=== PATIENT | female | born 1950 | race American Indian/Alaskan Native ===

== ENCOUNTER 2020-02-07 07:41 | Day surgery (SDC) | payer OTHER ==
[~2020-02-07 07:41] MED LIST: CELECOXIB 200 MG CAP PO NR; GABAPENTIN 300 MG CAP PO NR; LACTATED RINGERS 1,000 ML IV SCH; MAGNESIUM OXIDE 400 MG TAB PO SCH; MIDAZOLAM 2 MG/2 ML INJ IV NR; ceFAZolin/Water 2 GM/20 ML 2 GM/20 ML SYRINGE IV NR; fentaNYL 100 MCG/2 ML INJ IV PRN
[2020-02-07] MEDS ORDERED: LIDOCAINE (1%) 10 MG/1 ML VIAL 20 ML MDV ONE ×2 (08:33→09:53)
--- NOTE | 2020-02-07 09:49 | Anesthesia Consultation ---
Anesthesia Consult and Med Hx Date of service: 02/07/20 - Airway Anesthetic Teeth Evaluation: Good (permanent upper implants), Dentures (lower) ROM Head & Neck: Adequate Mental/Hyoid Distance: Adequate Mallampati Class: Class II Intubation Access Assessment: Probably Good - Pulmonary Exam CTA: Yes - Cardiac Exam Cardiac Exam: RRR - Pre-Operative Health Status ASA Pre-Surgery Classification: ASA3 Proposed Anesthetic Plan: General Nerve Block: PEC - Pulmonary Hx Smoking: No Hx Respiratory Symptoms: No Hx Sleep Apnea: Yes (mild, per patient. No CPAP prescribed.) - Cardiovascular System Hx Hypertension: Yes Hx Heart Attack/AMI: No Hx Percutaneous Transluminal Coronary Angioplasty (PTCA): No Hx Pacemaker: Yes (not pacer dependent) Hx Internal Defibrillator: Yes (recent interrogation OK) Hx Valvular Heart Disease: No - Central Nervous System CVA: No Hx Back Pain: Yes (NECK) Hx Psychiatric Problems: No - Gastrointestinal Hx Gastroesophageal Reflux Disease: No - Endocrine Hx Renal Disease: No Hx Liver Disease: No Hx Non-Insulin Dependent Diabetes: Yes Hx Thyroid Disease: No - Hematic Hx Anemia: Yes (LAST H/H 10.4/32.1, Plt 170s) - Other Systems Hx Cancer: Yes (breast ca) Hx Obesity: No - Additional Comments Anesthesia Medical History Comments: No hx anesthetic complications. Prior hx CHF w/ reduced EF and arryhthmia requiring AICD placement. Patient follows with cardiology regularly and had TTE approx 6 months ago which she reports showed EF improved to 50%. She also had recent AICD interrogation and note is in chart stating she is not pacer dependent. >4met exercise tolerance, no signs/symptoms of HF exacerbation.
[2020-02-07] MEDS ORDERED: fentaNYL 100 MCG/2 ML INJ IV PRN (09:51)
--- NOTE | 2020-02-07 09:51 | Anesthesia Day of Surgery ---
Anesthesia Day of Surgery - Day of Surgery Patient Examined: Yes Patient H&P Reviewed: Yes Patient is NPO: Yes Beta Blockers: Yes (took carvedilol this morning )
[2020-02-07] MEDS ORDERED: dexAMETHasone 4 MG/ML VIAL ONE (09:53)
[2020-02-07] MEDS ORDERED: BUPIVACAINE-EPINEPHRINE/PF 0.5%-1:200,000 (30 ML) VIAL INFILTRATI ONE (09:54)
[2020-02-07] MEDS ORDERED: ROCURONIUM 50 MG/5 ML INJ IV ONE (11:03)
[2020-02-07] MEDS ORDERED: dexAMETHasone 20 MG/5 ML VIAL ONE (11:03)
[2020-02-07] MEDS ORDERED: propofoL 200 MG/20 ML VIAL IV ONE (11:03)
[2020-02-07] MEDS ORDERED: fentaNYL 100 MCG/2 ML INJ ONE (11:04)
[2020-02-07] MEDS ORDERED: SODIUM CHLORIDE P/F VIAL 10 ML 10 ML ONE (11:29)
[2020-02-07] MEDS ORDERED: METHYLENE BLUE 50 MG/10 ML AMP ONE (11:29)
[2020-02-07] MEDS ORDERED: METHYLENE BLUE 50 MG/10 ML AMP IRRIGATION ONE (13:00)
[2020-02-07] MEDS ORDERED: WATER FOR IRRIG STERILE 1,500 ML BOTTLE IR ONE (13:01)
[2020-02-07] MEDS ORDERED: SODIUM CHLORIDE 0.9% P/F 10 ML VIAL INFILTRATI ONE (13:01)
--- NOTE | 2020-02-07 14:09 | Mammography Report ---
RIGHT BREAST MAMMOGRAPHY-GUIDED NEEDLE WIRE LOCALIZATION HISTORY: Right breast cancer. CONSENT: Technique, risks, and alternatives were discussed with the patient and informed written cons ent obtained. PROCEDURE: The right breast was placed in compression. A mammographic view was acquired, and the appropriate co ordinates for needle targeting determined. The skin overlying the chosen needle entry site were clean sed with betadine. The skin and superficial soft tissues were anesthetized with a small amount of bu ffered 1% lidocaine. Two 7.5 cm Morse needles was advanced along the anterior and posterior aspect of the calcifications and biopsy marker. A mammographic view suggested appropriate trajectory of the needles. An orthogonal view was acquired, and the needles adjusted to the appropriate depth. The wir es were placed, and the needles were removed. Post procedure mammographic images were acquired and annotated appropriately. The images were given t o the patient for transport to surgery. The patient tolerated the procedure well with no complication s. No surgical specimen was submitted for review. IMPRESSION Technically successful mammographically guided wire bracketing/localization in the right superior jesus ast. Signer Name: Ren Norwood MD Signed: 02/07/2020 2:04 PM Workstation Name: [id number]
[2020-02-07] MEDS ORDERED: ONDANSETRON 4 MG/2 ML INJ ONE (14:19)
--- NOTE | 2020-02-07 14:48 | Operative Report ---
Operative Report Operative Report: Operative Report: February 07, 2020 Preoperative diagnosis: Right breast cancer of the upper inner quadrant Postoperative diagnosis: Same Procedure: Right needle localization partial mastectomy of the upper inner quadrant and SLNB Surgeon: Jenn Cueto MD Oven Heater: Dr. Valladares Anesthesia: General Findings: Right wires and clip present within radiograph specimen; x 2 SLNs Complications: None EBL: Less than 25 cc Disposition: PACU in good condition Indications for operative procedure: This is a 69 year old lady with newly diagnosed right breast cancer of the upper inner quadrant, Stage II [id number] ER/MO positive (right breast cancer 1:00 position 14 cm FN, mammographic findings of calcifications with tissue distortion of 3 cm and ultrasound findings of 1 cm hypoechoic focus with tissue distortion of 2 cm). Recommendations are to proceed with breast conservation. Radiology bracketed areas of cancer of IDCA breast cancer mass and tissue distortion with calcifications. She understands the role of adjuvant radiation therapy and Oncotype DX will be obtained by medical oncology. She wished to proceed with the above procedure. Genetic testing with no significant gene mutation. Procedure in detail: The patient was taken to radiology for wire placement for localization known area of cancer with associated tissue distortion. Anesthesia placed right pectoral block. Patient was then taken to the operating room. Gen. anesthesia was administered. The right nipple was injected with radioisotope and 1 cc of methylene blue dye with 1 cc of saline. Right breast and axilla were prepped and draped in the normal sterile operative fashion. The wires were identified. Timeout was performed. Gamma probe was inserted into the axilla. The area of hot spot was identified. A right axillary incision was made with a 15 blade knife with dissection taken down to the subcutaneous tissues. The axillary fascia was opened with the Bovie cautery. 2 SLNs were identified. All remaining counts were less than 10% of the highest count. Lymph node was sent to pathology for permanent processing. Hemostasis was obtained in the right axillary cavity. Axillary cavity was appropriately irrigated and suctioned. Hemostasis was noted. Axillary fascia was approximated and closed using interrupted 3-0 Vicryl and the skin brought together and closed using a running 4-0 Monocryl followed by skin affix. Attention was then taken towards the right breast. Ultrasound was used as well, area of known cancer around 1:00 position 14 cm FN. An upper inner quadrant breast incision was made with a 15 blade knife and dissection taken down to subcutaneous tissues. First began raising of the superior flap with removal of the wires from the skin with dissection take down to the pectoralis muscle, followed by raising of the inferior flap, medial flap and lateral flap with all flaps taken down to the pectoralis muscle. The breast area of concern was appropriately removed posteriorly from the pectoralis muscle with the aid of the Bovie cautery. The wires were not encountered. Specimen was marked and then sent to pathology and radiology; radiograph specimen with wires and clip present. Breast cavity was irrigated and hemostasis was obtained. The posterior deep breast tissues were approximated and closed using interrupted 3-0 Vicryl. The subcutaneous tissues were approximated and closed using interrupted 3-0 Vicryl followed by closing of the skin with a running 4-0 Monocryl and skin affix. The patient tolerated surgery very well and she was awaken from anesthesia without any complication and transported to PACU in good condition.
--- NOTE | 2020-02-07 14:51 | Short Stay Summary ---
Short Stay Documentation Date of service: 02/07/20 - History H&P: obtained from office - Allergies and Medications Current Medications: Allergies No Known Allergies Allergy (Verified 01/31/20 10:42) Home Medications Medication Instructions Recorded Confirmed Last Taken Type Ascorbic Acid [Vitamin C] 500 mg PO QDAY 01/31/20 01/31/20 Unknown History Aspirin EC [Halfprin EC] 81 mg PO QDAY 01/31/20 01/31/20 Unknown History Dulaglutide [Trulicity] 1.5 mg SQ QWEEK 01/31/20 01/31/20 Unknown History Ergocalciferol [Vitamin D2] 1 cap PO QWEEK 01/31/20 01/31/20 Unknown History Losartan [Cozaar] 25 mg PO QDAY 01/31/20 01/31/20 Unknown History Spironolactone [Aldactone] 25 mg PO QDAY 01/31/20 01/31/20 Unknown History Turmeric Root Extract [Turmeric 1,000 mg PO DAILY 01/31/20 01/31/20 Unknown History Curcumin] carvediloL [Coreg] 25 mg PO BID 01/31/20 01/31/20 Unknown History HYDROcodone/APAP 5-325 [[place] 1 each PO Q6HR PRN #20 tablet 02/07/20 Unknown Rx 5/325] Active Medications Celecoxib (Celebrex) 200 mg PO PREOP NR Stop: 02/07/20 23:59 Last Admin: 02/07/20 09:40 Dose: 200 mg Documented by: Fentanyl (Sublimaze) 100 mcg IV ONCE PRN PRN Reason: sedation for nerve block Stop: 02/07/20 23:59 Last Admin: 02/07/20 10:47 Dose: 50 mcg Documented by: Fentanyl (Sublimaze) 50 mcg IV Q5MIN PRN PRN Reason: Pain , Severe (7-10) Gabapentin (Gabapentin) 300 mg PO PREOP NR Stop: 02/07/20 23:59 Last Admin: 02/07/20 09:40 Dose: 300 mg Documented by: Cefazolin Sodium (Ancef/Sterile Water 2 Gm/20 Ml) 2 gm in 20 mls @ 80 mls/hr IV PREOP NR; Protocol Stop: 02/07/20 23:59 Lactated Ringer's (Lactated Ringers) 1,000 mls @ 100 mls/hr IV DIRECT LEO Stop: 02/07/20 23:59 Last Admin: 02/07/20 09:40 Dose: 100 mls/hr Documented by: Magnesium Oxide (Mag-Ox) 400 mg PO PREOP LEO Stop: 02/07/20 23:59 Last Admin: 02/07/20 09:40 Dose: 400 mg Documented by: Midazolam HCl (Versed) 2 mg IV PREOP NR Stop: 02/07/20 23:59 Last Admin: 02/07/20 10:47 Dose: 2 mg Documented by: - Brief post op/procedure progress note Date of procedure: 02/07/20 Pre-op diagnosis: Right breast cancer upper inner quadrant Post-op diagnosis: same Procedure: Right needle localization partial mastectomy with SLNB Anesthesia: GETA Findings: Wires and clip present; x2 SLNs Surgeon: YENNIFER FALCON Sider: GERSON BACON Estimated blood loss: minimal Pathology: list (right partial mastectomy; x2slns) Specimen disposition: to lab Condition: stable - Disposition Condition at discharge: Good Disposition: DC-01 TO HOME OR SELFCARE Short Stay Discharge Plan Activity: other (no heavy lifting) Diet: regular Wound: keep clean and dry (wear breast binder, may shower in 48 hours; no baths, pools or lakes) Follow up with: MICHAEL MONIQUE JR, MD [Primary Care Provider] - 7 Days YENNIFER FALCON MD [Staff Physician] - 7 Days Prescriptions: HYDROcodone/APAP 5-325 [[place]iff 5/325] 1 each PO Q6HR PRN #20 tablet PRN Reason: Pain
--- NOTE | 2020-02-07 15:27 | Mammography Report ---
BREAST SURGICAL SPECIMEN INDICATION: Right breast cancer, planned surgical excision. COMPARISON: Outside imaging 11/27/2019 and 11/02/2019. FINDINGS: Single surgical specimen radiograph was obtained. This documents a biopsy marker as well as calcifications within the specimen. Two Morse wires which were placed for bracketing are identifie d as well. IMPRESSION: Single surgical specimen containing biopsy marker and calcifications. Signer Name: Ren Norwood MD Signed: 02/07/2020 3:22 PM Workstation Name: [id number]
[2020-02-07 16:52] VITALS: BP 139/72
--- NOTE | 2020-02-07 18:45 | Post Anesthesia Evaluation ---
- Post Anesthesia Evaluation Patient Participated: Yes Airway Patent: Yes Stable Respiratory Function: Yes Nausea/Vomiting: No Temp > 96.8F: Yes Pain Manageable: Yes Adequeate Hydration: Yes Anesthesia Complications: No
== END 2020-02-07 07:42 | disposition home or self-care (01) ==
LOC: OR 07:41
PROVIDERS: ATTEND Surgery
DX: C50.211 Malignant neoplasm of upper-inner quadrant of right female breast (principal); Z11.59 Encounter for screening for other viral diseases; I11.0 Hypertensive heart disease with heart failure; I50.9 Heart failure, unspecified; G47.30 Sleep apnea, unspecified; M19.90 Unspecified osteoarthritis, unspecified site; E11.9 Type 2 diabetes mellitus without complications; D64.9 Anemia, unspecified; Z80.3 Family history of malignant neoplasm of breast; Z72.89 Other problems related to lifestyle; Z98.890 Other specified postprocedural states; Z79.899 Other long term (current) drug therapy; Z79.82 Long term (current) use of aspirin; Z98.49 Cataract extraction status, unspecified eye; Z95.0 Presence of cardiac pacemaker; Z90.710 Acquired absence of both cervix and uterus; Z85.830 Personal history of malignant neoplasm of bone
CPT/HCPCS: 19281; 19301; 38525; 38792; 76098; 78800; 82962; 88307; 88333; 88341; 88342; A9541; J0690; J1100; J2250; J2405; J2704; J3010; J7120; Q9968; U0003; 64450

== ENCOUNTER 2020-12-03 13:18 | Outpatient (CLI) | payer MEDICARE ==
--- NOTE | 2020-12-03 14:22 | Mammography Report ---
DIGITAL DIAGNOSTIC MAMMOGRAM WITH CAD CONVENTIONAL, 12/03/2020 CLINICAL INFORMATION / INDICATION: Patient has history of right breast cancer status post lumpectomy in January 2020 followed by radiation. PERSONAL HX OF MALIGNANT NEOPLASM OF BREAST TECHNIQUE: Digital bilateral mammographic imaging was performed. This examination was interpreted with the benefit of Computer-aided Detection analysis. COMPARISON: Prior mammograms 09/29/2019 and 09/27/2018 FINDINGS: Breast Density: There are scattered areas of fibroglandular density. No dominant mass, suspicious calcifications or architectural distortion in either breast. There is new benign postlumpectomy change seen in the posterior 12:00 position of the right breast, a nd new radiation change in the right breast with associated right breast skin thickening. There is a biopsy clip in the upper outer quadrant of the right breast. There are stable benign-appearing calcif ications seen in both breasts. IMPRESSION: No mammographic evidence of malignancy. Follow up recommendation: Routine yearly BI-RADS Category 2: Benign. A "normal" or negative report should not discourage follow up or biopsy of a clinically significant f inding. A written summary of these findings will be mailed to the patient. The patient will be entered into a mammography reporting system which will generate a reminder letter for the patient's next appointmen t at the appropriate interval. According to the [employer], yearly mammograms are recommended starting at age 40 and continuing as long as a woman is in good health. Breast MRI is recommended for women with an caretr roximately 20-25% or greater lifetime risk of breast cancer, including women with a strong family his tory of breast or ovarian cancer and women who have been treated for Hodgkin's disease. Signer Name: Denice Mckeon MD Signed: 12/03/2020 2:18 PM Workstation Name: [id number]
== END 2020-12-03 13:19 | disposition home or self-care (01) ==
LOC: SPVWC 13:18
PROVIDERS: ATTEND Surgery
DX: R92.1 Mammographic calcification found on diagnostic imaging of breast (principal); Z85.3 Personal history of malignant neoplasm of breast
CPT/HCPCS: 77066

== ENCOUNTER 2021-03-05 10:17 | Outpatient (CLI) | payer MEDICARE ==
--- NOTE | 2021-03-05 12:05 | Ultrasound Report ---
RIGHT DIGITAL DIAGNOSTIC MAMMOGRAM WITH CAD , 03/05/2021 RIGHT LIMITED BREAST ULTRASOUND CLINICAL INFORMATION / INDICATION: Patient has history of right breast carcinoma with right lumpectom y performed January 2020. Patient is also been treated with radiation in early 2020. She is complaining of right breast hardness and right breast pain. TECHNIQUE: Digital right mammographic imaging was performed. Limited ultrasound was performed. This e xamination was interpreted with the benefit of Computer-Aided Detection (CAD) analysis. COMPARISON: Recent mammogram 12/03/2020 and preoperative mammogram, 11/27/2019 FINDINGS: Breast Density: The breasts are almost entirely fatty. MAMMOGRAPHIC FINDINGS: Post lumpectomy and radiation change are again noted in the right breast. Foca l scarring is again noted in the superior right breast at approximately 12-1:00 unchanged from the mo recent postoperative mammogram. There is diffuse skin thickening and trabecular thickening through out the right breast consistent with radiation change. This is grossly stable compared to the most re cent mammogram. Incidentally noted is a biopsy clip in the upper outer quadrant of the right breast, as noted on prio r studies.. ULTRASOUND FINDINGS: Targeted ultrasound evaluation was performed of the area of interest. Sonograp hic evaluation in the area of pain, as directed by the patient, does not reveal any worrisome finding s. The area evaluated included the lower inner quadrant of the right breast. There is skin thickening as noted mammographically related to recent radiation treatment. However, there is no mass, cyst, or focal area of shadowing identified. IMPRESSION: No mammographic or sonographic evidence of malignancy. Post lumpectomy and radiation garcía ge is again noted throughout the right breast unchanged from the most recent mammogram. Clinical lu zelena elation recommended for right breast pain. Follow up recommendation: Routine yearly BI-RADS Category 2: Benign. A "normal" or negative report should not discourage follow up or biopsy of a clinically significant f inding. A written summary of these findings will be mailed to the patient. The patient will be entered into a mammography reporting system which will generate a reminder letter for the patient's next appointmen t at the appropriate interval. According to the [employer], yearly mammograms are recommended starting at age 40 and continuing as long as a woman is in good health. Breast MRI is recommended for women with an carter roximately 20-25% or greater lifetime risk of breast cancer, including women with a strong family his tory of breast or ovarian cancer and women who have been treated for Hodgkin's disease. Signer Name: Giovanna Bowden MD Signed: 03/05/2021 12:00 PM Workstation Name: [id number]
== END 2021-03-05 10:18 | disposition home or self-care (01) ==
LOC: SPVWC 10:17
PROVIDERS: ATTEND Surgery
DX: R92.8 Other abnormal and inconclusive findings on diagnostic imaging of breast (principal); Z85.3 Personal history of malignant neoplasm of breast